=== PATIENT | female | born 1950 | race Caucasian/White ===

== ENCOUNTER 2017-06-23 12:50 | Outpatient (CLI) | payer MEDICARE, SELFPAY ==
[2017-06-23 13:50] VITALS: BP 139/80; PULSE 56; RESP 18; TEMP 36.8
[2017-06-23 14:20] VITALS: BP 140/66; PULSE 57; RESP 18
[2017-06-23 14:30] VITALS: BP 141/71; PULSE 58; RESP 18
== END 2017-06-23 14:50 | disposition home or self-care (01) ==
LOC: INF 13:06
PROVIDERS: Family Provider Internal Medicine; Visit Provider Internal Medicine Infectious Disease
DX: L03.90 Cellulitis, unspecified (principal); Z90.13 Acquired absence of bilateral breasts and nipples; C50.919 Malignant neoplasm of unspecified site of unspecified female breast
CPT/HCPCS: 96365; J0878

== ENCOUNTER 2017-06-24 10:33 | Outpatient (CLI) | payer MEDICARE, SELFPAY ==
[2017-06-24 10:46] VITALS: BP 122/65; PULSE 100; RESP 20; TEMP 37.7; O2SAT 93; BMI 29.2
[2017-06-24 12:45] VITALS: BP 122/65; PULSE 100; RESP 20; TEMP 37.7; O2SAT 93
== END 2017-06-24 13:47 | disposition home or self-care (01) ==
LOC: INF 10:34
PROVIDERS: Family Provider Internal Medicine; PCP Internal Medicine; Visit Provider Internal Medicine Infectious Disease
DX: L03.90 Cellulitis, unspecified (principal); Z90.13 Acquired absence of bilateral breasts and nipples; C50.919 Malignant neoplasm of unspecified site of unspecified female breast
CPT/HCPCS: 96360; 96365; 96367; J0878

== ENCOUNTER 2017-06-25 10:51 | Outpatient (CLI) | payer MEDICARE, SELFPAY ==
[2017-06-25 11:29] VITALS: BP 131/66; PULSE 73; RESP 18; TEMP 37.1; O2SAT 95; BMI 29.2
[2017-06-25 12:20] VITALS: BP 127/71; PULSE 75; RESP 18; TEMP 36.7; O2SAT 96
== END 2017-06-25 12:30 | disposition home or self-care (01) ==
LOC: INF 10:51
PROVIDERS: Family Provider Internal Medicine; PCP Internal Medicine; Visit Provider Internal Medicine Infectious Disease
DX: L03.90 Cellulitis, unspecified (principal); Z90.13 Acquired absence of bilateral breasts and nipples; C50.919 Malignant neoplasm of unspecified site of unspecified female breast
CPT/HCPCS: 96365; J0878

== ENCOUNTER 2017-06-26 10:40 | Outpatient (CLI) | payer MEDICARE, SELFPAY ==
[2017-06-26 10:49] VITALS: BP 114/63; PULSE 79; RESP 18; TEMP 36.6; O2SAT 99
[2017-06-26 11:04] VITALS: BP 111/61; PULSE 77; RESP 18; O2SAT 98
[2017-06-26 11:19] VITALS: BP 110/64; PULSE 74; RESP 18; O2SAT 98
[2017-06-26 11:34] VITALS: BP 115/61; PULSE 75; RESP 18; O2SAT 99
[2017-06-26 11:49] VITALS: BP 110/67; PULSE 71; RESP 18; O2SAT 98
[2017-06-26 12:05] VITALS: BP 105/67; PULSE 76; RESP 18; O2SAT 99
== END 2017-06-26 12:10 | disposition home or self-care (01) ==
LOC: INF 10:45
PROVIDERS: Family Provider Internal Medicine; PCP Internal Medicine; Visit Provider Internal Medicine Infectious Disease
DX: L03.90 Cellulitis, unspecified (principal); Z90.13 Acquired absence of bilateral breasts and nipples; C50.919 Malignant neoplasm of unspecified site of unspecified female breast
CPT/HCPCS: 96365; J0878

== ENCOUNTER 2017-06-27 12:25 | Outpatient (CLI) | payer MEDICARE, SELFPAY ==
[2017-06-27 12:37] VITALS: BP 121/72; PULSE 83; RESP 20; TEMP 36.6; O2SAT 98
[2017-06-27 12:52] VITALS: BP 124/76; PULSE 87; RESP 18; O2SAT 98
[2017-06-27 13:07] VITALS: BP 119/65; PULSE 81; RESP 18; O2SAT 97
[2017-06-27 13:25] VITALS: BP 123/79; PULSE 80; RESP 18; O2SAT 99
== END 2017-06-27 13:25 | disposition home or self-care (01) ==
LOC: INF 12:25
PROVIDERS: Family Provider Internal Medicine; PCP Internal Medicine; Visit Provider Internal Medicine Infectious Disease
DX: L03.90 Cellulitis, unspecified (principal); Z90.13 Acquired absence of bilateral breasts and nipples; C50.919 Malignant neoplasm of unspecified site of unspecified female breast
CPT/HCPCS: 96365; J0878

== ENCOUNTER 2017-06-28 12:15 | Outpatient (CLI) | payer MEDICARE, SELFPAY ==
[2017-06-28 12:25] VITALS: BMI 29.2
[2017-06-28 12:53] LABS: Basophils % 0.7 % (0.1-2.0); Eosinophils # 0.1 K/mm3 (0.0-0.4); Eosinophils % 1.3 % (0.1-12.0); Hematocrit 41.6 % (37.0-47.0); Hemoglobin 13.7 g/dL (12.2-16.2); Lymphocytes # 1.9 K/mm3 (0.7-4.5); Lymphocytes % 35.8 K/mm3 (10-50); Mean Corpuscular HGB Conc 32.9 g/dL (31.8-35.4); Mean Corpuscular Hemoglobin 28.9 pg (27.0-31.2); Mean Corpuscular Volume 87.8 fl (81-99); Monocytes # 0.4 K/mm3 (0.1-1.0); Monocytes % 7.4 % (1.7-9.3); Neutrophils # 2.9 K/mm3 (1.8-7.8); Neutrophils % 54.7 % (37.0-80.0); Platelet Count 223 K/mm3 (142-424); Red Blood Count 4.74 M/mm3 (4.20-5.40); Red Cell Distribution Width 12.8 % (11.5-17.5); White Blood Count 5.2 K/mm3 (4.8-10.8)
[2017-06-28 12:55] VITALS: BP 133/54; PULSE 64; RESP 18; O2SAT 97
[2017-06-28 13:04] LABS: Alanine Aminotransferase 40 U/L (12-78); Albumin Level 3.5 gm/dL (3.4-5.0); Alkaline Phosphatase 84 U/L (46-116); Anion Gap 10.9 mEq/L (5-15); Aspartate Amino Transferase 37 U/L (15-37); Bilirubin,Total 0.7 mg/dL (0.2-1.0); Blood Urea Nitrogen 15 mg/dL (7-18); C-Reactive Protein 1.1 mg/L (0.0-0.9); Calcium 9.3 mg/dL (8.5-10.1); Carbon Dioxide 32 mmol/L (21.0-32.0); Chloride 98 mmol/L (98-107); Creatine Kinase 75 U/L (26-192); Creatinine Clearance Estimated 58 mL/min (0-300); Creatinine,Serum 0.71 mg/dL (0.55-1.02); Estimated Glomerular Filt Rate 82 ml/min (>60); GFR (African American) 99 ML/MIN (>60); Globulin 3.6 gm/dl (1.3-3.2); Glucose 121 mg/dL (74-106); Sodium 138 mmol/L (136-145); Total Protein,Serum 7.1 gm/dL (6.4-8.2)
[2017-06-28 13:07] LABS: Potassium 2.9 mmoL/L (3.5-5.1)
[2017-06-28 13:25] VITALS: BP 126/70; PULSE 65; RESP 18
[2017-06-28 13:35] VITALS: BP 133/70; PULSE 67; RESP 18
[2017-06-28 13:38] LABS: Erythrocyte Sedimentation Rate 7 mm/hr (0-30)
== END 2017-06-28 14:05 | disposition home or self-care (01) ==
LOC: INF 12:22
PROVIDERS: Family Provider Internal Medicine; PCP Internal Medicine; Visit Provider Internal Medicine Infectious Disease
DX: L03.90 Cellulitis, unspecified (principal); Z90.13 Acquired absence of bilateral breasts and nipples; C50.919 Malignant neoplasm of unspecified site of unspecified female breast
CPT/HCPCS: 80053; 82550; 85025; 85651; 86140; 96365; J0878

== ENCOUNTER 2017-06-29 13:15 | Outpatient (CLI) | payer MEDICARE, SELFPAY ==
[2017-06-29 13:32] VITALS: BP 129/62; PULSE 78; RESP 18; TEMP 36.6; O2SAT 95; BMI 28.3
[2017-06-29 14:45] VITALS: BP 137/67; PULSE 70; RESP 18
== END 2017-06-29 15:00 | disposition home or self-care (01) ==
LOC: INF 13:29
PROVIDERS: Family Provider Internal Medicine; PCP Internal Medicine; Visit Provider Internal Medicine Infectious Disease
DX: L03.90 Cellulitis, unspecified (principal); Z90.13 Acquired absence of bilateral breasts and nipples; C50.919 Malignant neoplasm of unspecified site of unspecified female breast
CPT/HCPCS: 96365; J0878; J1642

== ENCOUNTER 2017-06-30 11:05 | Outpatient (CLI) | payer MEDICARE, SELFPAY ==
[2017-06-30 11:40] VITALS: BP 122/63; PULSE 66; RESP 18; TEMP 36.9
[2017-06-30 12:10] VITALS: BP 111/61; PULSE 73; RESP 18
[2017-06-30 12:25] VITALS: BP 110/68; PULSE 66; RESP 18
== END 2017-06-30 12:45 | disposition home or self-care (01) ==
LOC: INF 11:18
PROVIDERS: Family Provider Internal Medicine; PCP Internal Medicine; Visit Provider Internal Medicine Infectious Disease
DX: L03.90 Cellulitis, unspecified (principal); Z90.13 Acquired absence of bilateral breasts and nipples; C50.919 Malignant neoplasm of unspecified site of unspecified female breast
CPT/HCPCS: 96365; J0878; J1642

== ENCOUNTER → 2017-07-01 12:06 | Outpatient (CLI) | payer MEDICARE, SELFPAY ==
[2017-07-01 12:06] VITALS: BP 124/76; PULSE 72; RESP 18; TEMP 36.7; O2SAT 97
[2017-07-01 13:10] VITALS: BP 123/74; PULSE 71; RESP 18; TEMP 36.7; BMI 14.8
== END ==
PROVIDERS: Family Provider Internal Medicine; PCP Internal Medicine; Visit Provider Internal Medicine Infectious Disease
DX: L03.90 Cellulitis, unspecified (principal); Z90.13 Acquired absence of bilateral breasts and nipples; C50.919 Malignant neoplasm of unspecified site of unspecified female breast
CPT/HCPCS: 96365; G0463; J0878

== ENCOUNTER → 2017-07-02 09:48 | Outpatient (CLI) | payer MEDICARE, SELFPAY ==
[2017-07-02 09:48] VITALS: BP 120/68; PULSE 90; RESP 18; TEMP 36.7; O2SAT 100
[2017-07-02 10:33] VITALS: BP 119/66; PULSE 90; RESP 18; TEMP 36.7; O2SAT 100; BMI 28.5
== END ==
PROVIDERS: Family Provider Internal Medicine; PCP Internal Medicine; Visit Provider Internal Medicine Infectious Disease
DX: L03.90 Cellulitis, unspecified (principal); Z90.13 Acquired absence of bilateral breasts and nipples; C50.919 Malignant neoplasm of unspecified site of unspecified female breast
CPT/HCPCS: 96365; G0463; J0878

== ENCOUNTER 2017-07-03 11:57 | Outpatient (CLI) | payer MEDICARE, SELFPAY ==
[2017-07-03 12:20] VITALS: BP 132/68; PULSE 75; RESP 18; TEMP 36.5; O2SAT 96
[2017-07-03 12:50] VITALS: BP 121/66; PULSE 70; RESP 18
[2017-07-03 13:20] VITALS: BP 119/72; PULSE 78; RESP 18
[2017-07-03 13:30] VITALS: BP 124/64; PULSE 69; RESP 18
== END 2017-07-03 13:30 | disposition home or self-care (01) ==
LOC: INF 11:57
PROVIDERS: Family Provider Internal Medicine; PCP Internal Medicine; Visit Provider Internal Medicine Infectious Disease
DX: L03.90 Cellulitis, unspecified (principal); Z90.13 Acquired absence of bilateral breasts and nipples; C50.919 Malignant neoplasm of unspecified site of unspecified female breast
CPT/HCPCS: 96365; J0878

== ENCOUNTER 2017-07-04 11:43 | Outpatient (CLI) | payer MEDICARE, SELFPAY ==
[2017-07-04 12:15] VITALS: BP 109/65; PULSE 64; RESP 18; TEMP 36.6; O2SAT 97
[2017-07-04 13:20] VITALS: BP 112/64; PULSE 68; RESP 18; TEMP 36.6; O2SAT 96
== END 2017-07-04 13:20 | disposition home or self-care (01) ==
LOC: INF 11:43
PROVIDERS: Family Provider Internal Medicine; PCP Internal Medicine; Visit Provider Internal Medicine Infectious Disease
DX: L03.90 Cellulitis, unspecified (principal); Z90.13 Acquired absence of bilateral breasts and nipples; C50.919 Malignant neoplasm of unspecified site of unspecified female breast
CPT/HCPCS: 96365; J0878; J1642

== ENCOUNTER 2017-07-05 11:45 | Outpatient (CLI) | payer MEDICARE, SELFPAY ==
[2017-07-05 11:51] VITALS: BMI 28.5
[2017-07-05 12:20] VITALS: BP 121/77; PULSE 67; RESP 18
[2017-07-05 12:50] VITALS: BP 116/71; PULSE 60; RESP 18
[2017-07-05 12:53] LABS: Basophils % 0.5 % (0.1-2.0); Eosinophils # 0.1 K/mm3 (0.0-0.4); Eosinophils % 1.6 % (0.1-12.0); Hemoglobin 12.9 g/dL (12.2-16.2); Lymphocytes # 1.5 K/mm3 (0.7-4.5); Lymphocytes % 30.1 K/mm3 (10-50); Mean Corpuscular HGB Conc 32.2 g/dL (31.8-35.4); Mean Corpuscular Hemoglobin 28.1 pg (27.0-31.2); Mean Corpuscular Volume 87.2 fl (81-99); Mean Platelet Volume 7.2 fl (7.4-10.4); Monocytes # 0.5 K/mm3 (0.1-1.0); Monocytes % 9.4 % (1.7-9.3); Neutrophils # 2.9 K/mm3 (1.8-7.8); Neutrophils % 58.5 % (37.0-80.0); Platelet Count 370 K/mm3 (142-424); Red Blood Count 4.58 M/mm3 (4.20-5.40); Red Cell Distribution Width 12.7 % (11.5-17.5); White Blood Count 4.9 K/mm3 (4.8-10.8)
[2017-07-05 12:56] LABS: Alanine Aminotransferase 31 U/L (12-78); Albumin Level 3.5 gm/dL (3.4-5.0); Alkaline Phosphatase 92 U/L (46-116); Anion Gap 12.2 mEq/L (5-15); Aspartate Amino Transferase 24 U/L (15-37); Bilirubin,Total 0.4 mg/dL (0.2-1.0); Blood Urea Nitrogen 15 mg/dL (7-18); C-Reactive Protein 0.2 mg/L (0.0-0.9); Calcium 8.7 mg/dL (8.5-10.1); Carbon Dioxide 31 mmol/L (21.0-32.0); Chloride 102 mmol/L (98-107); Creatinine Clearance Estimated 56 mL/min (0-300); Creatinine,Serum 0.69 mg/dL (0.55-1.02); Estimated Glomerular Filt Rate 85 ml/min (>60); GFR (African American) 102 ML/MIN (>60); Globulin 3.5 gm/dl (1.3-3.2); Glucose 118 mg/dL (74-106); Potassium 4.2 mmoL/L (3.5-5.1); Sodium 141 mmol/L (136-145)
[2017-07-05 13:05] LABS: Creatine Kinase 166 U/L (26-192)
[2017-07-05 14:35] LABS: Erythrocyte Sedimentation Rate 20 mm/hr (0-30)
== END 2017-07-05 13:30 | disposition home or self-care (01) ==
LOC: INF 11:46
PROVIDERS: Family Provider Internal Medicine; PCP Internal Medicine; Visit Provider Internal Medicine Infectious Disease
DX: L03.90 Cellulitis, unspecified (principal); Z90.13 Acquired absence of bilateral breasts and nipples; C50.919 Malignant neoplasm of unspecified site of unspecified female breast
CPT/HCPCS: 80053; 82550; 85025; 85651; 86140; 96365; J0878; J1642

== ENCOUNTER 2017-07-06 09:30 | Outpatient (CLI) | payer MEDICARE, SELFPAY ==
[2017-07-06 10:23] VITALS: BP 92/52; PULSE 66; RESP 18; TEMP 36.8; O2SAT 96
[2017-07-06 10:45] VITALS: BP 102/56; PULSE 69; RESP 18
[2017-07-06 11:10] VITALS: BP 103/64; PULSE 68; RESP 18; TEMP 36.6; O2SAT 95
== END 2017-07-06 11:20 | disposition home or self-care (01) ==
LOC: INF 09:35
PROVIDERS: Family Provider Internal Medicine; PCP Internal Medicine; Visit Provider Internal Medicine Infectious Disease
DX: L03.90 Cellulitis, unspecified (principal); Z90.13 Acquired absence of bilateral breasts and nipples; C50.919 Malignant neoplasm of unspecified site of unspecified female breast
CPT/HCPCS: 96365; J0878; J1642

== ENCOUNTER 2017-07-07 11:09 | Outpatient (CLI) | payer MEDICARE, SELFPAY ==
[2017-07-07 11:30] VITALS: BP 119/67; PULSE 69; TEMP 36.4
[2017-07-07 12:05] VITALS: BP 106/56; PULSE 70; RESP 18
== END 2017-07-07 12:30 | disposition home or self-care (01) ==
LOC: INF 11:09
PROVIDERS: Family Provider Internal Medicine; PCP Internal Medicine; Visit Provider Internal Medicine Infectious Disease
DX: L03.90 Cellulitis, unspecified (principal); Z90.13 Acquired absence of bilateral breasts and nipples; C50.919 Malignant neoplasm of unspecified site of unspecified female breast
CPT/HCPCS: 96365; 96367; J0878; J1642

== ENCOUNTER → 2017-07-08 10:07 | Outpatient (CLI) | payer MEDICARE, SELFPAY ==
[2017-07-08 10:42] VITALS: BMI 28.5
[2017-07-08 10:43] VITALS: BP 144/76; PULSE 64; RESP 18; TEMP 36.3; O2SAT 98
[2017-07-08 12:04] VITALS: BP 144/79; PULSE 52; RESP 18; TEMP 36.6; O2SAT 98
== END ==
PROVIDERS: Family Provider Internal Medicine; PCP Internal Medicine; Visit Provider Internal Medicine Infectious Disease
DX: L03.90 Cellulitis, unspecified (principal); Z90.13 Acquired absence of bilateral breasts and nipples; C50.919 Malignant neoplasm of unspecified site of unspecified female breast
CPT/HCPCS: 96365; 96367; J0878

== ENCOUNTER 2017-07-09 10:19 | Outpatient (CLI) | payer MEDICARE, SELFPAY ==
[2017-07-09 10:28] VITALS: BP 115/73; PULSE 67; RESP 18; TEMP 36.7; O2SAT 94
[2017-07-09 11:46] VITALS: BMI 28.6
[2017-07-09 12:54] VITALS: BP 131/68; PULSE 73; RESP 18; TEMP 36.6; O2SAT 97
== END 2017-07-09 12:56 | disposition home or self-care (01) ==
LOC: INF 10:20
PROVIDERS: Family Provider Internal Medicine; PCP Internal Medicine; Visit Provider Internal Medicine Infectious Disease
DX: L03.90 Cellulitis, unspecified (principal); Z90.13 Acquired absence of bilateral breasts and nipples; C50.919 Malignant neoplasm of unspecified site of unspecified female breast
CPT/HCPCS: 96365; 96367; J0878

== ENCOUNTER 2017-07-10 11:43 | Outpatient (CLI) | payer MEDICARE, SELFPAY ==
[2017-07-10 12:15] VITALS: BP 112/68; PULSE 68; RESP 18; TEMP 36.7; O2SAT 97
[2017-07-10 12:45] VITALS: BP 113/68; PULSE 75; RESP 18
[2017-07-10 13:00] VITALS: BP 112/68; PULSE 72; RESP 18
[2017-07-10 13:15] VITALS: BP 112/68; PULSE 72; RESP 18
== END 2017-07-10 13:15 | disposition home or self-care (01) ==
LOC: INF 11:43
PROVIDERS: Family Provider Internal Medicine; PCP Internal Medicine; Visit Provider Internal Medicine Infectious Disease
DX: L03.90 Cellulitis, unspecified (principal); Z90.13 Acquired absence of bilateral breasts and nipples; C50.919 Malignant neoplasm of unspecified site of unspecified female breast
CPT/HCPCS: 96365; 96367; J0878

== ENCOUNTER 2017-07-11 12:01 | Outpatient (CLI) | payer MEDICARE, SELFPAY ==
[2017-07-11 13:00] VITALS: BP 145/82; PULSE 83; RESP 20; TEMP 36.5; O2SAT 96
[2017-07-11 15:20] VITALS: BP 152/87; PULSE 83; RESP 20; TEMP 36.9; O2SAT 96
== END 2017-07-11 13:10 | disposition home or self-care (01) ==
LOC: INF 12:01
PROVIDERS: Family Provider Internal Medicine; PCP Internal Medicine; Visit Provider Internal Medicine Infectious Disease
DX: L03.90 Cellulitis, unspecified (principal); Z90.13 Acquired absence of bilateral breasts and nipples; C50.919 Malignant neoplasm of unspecified site of unspecified female breast
CPT/HCPCS: 96365; 96367; J0878; J1642

== ENCOUNTER 2017-07-12 11:38 | Outpatient (CLI) | payer MEDICARE, SELFPAY ==
[2017-07-12 11:40] VITALS: BP 119/71; PULSE 72; RESP 18; TEMP 36.6; O2SAT 95; O2SAT 97
[2017-07-12 11:57] VITALS: BMI 28.5
[2017-07-12 12:19] VITALS: BP 142/63; PULSE 75; RESP 18; TEMP 36.6; O2SAT 97
[2017-07-12 12:21] LABS: Basophils % 0.7 % (0.1-2.0); Eosinophils # 0.1 K/mm3 (0.0-0.4); Eosinophils % 2.1 % (0.1-12.0); Hematocrit 38.2 % (37.0-47.0); Hemoglobin 12.5 g/dL (12.2-16.2); Lymphocytes # 1.6 K/mm3 (0.7-4.5); Mean Corpuscular HGB Conc 32.7 g/dL (31.8-35.4); Mean Corpuscular Hemoglobin 28.1 pg (27.0-31.2); Mean Platelet Volume 6.9 fl (7.4-10.4); Monocytes # 0.4 K/mm3 (0.1-1.0); Monocytes % 7.1 % (1.7-9.3); Neutrophils # 3.6 K/mm3 (1.8-7.8); Neutrophils % 62.1 % (37.0-80.0); Platelet Count 316 K/mm3 (142-424); Red Blood Count 4.44 M/mm3 (4.20-5.40); Red Cell Distribution Width 12.8 % (11.5-17.5); White Blood Count 5.7 K/mm3 (4.8-10.8)
[2017-07-12 12:33] LABS: Alanine Aminotransferase 24 U/L (12-78); Albumin Level 3.6 gm/dL (3.4-5.0); Albumin/Globulin Ratio 1.1 (1.1-1.8); Alkaline Phosphatase 86 U/L (46-116); Aspartate Amino Transferase 21 U/L (15-37); Bilirubin,Total 0.6 mg/dL (0.2-1.0); Blood Urea Nitrogen 22 mg/dL (7-18); Carbon Dioxide 30 mmol/L (21.0-32.0); Chloride 103 mmol/L (98-107); Creatine Kinase 113 U/L (26-192); Creatinine Clearance Estimated 56 mL/min (0-300); Creatinine,Serum 0.66 mg/dL (0.55-1.02); Estimated Glomerular Filt Rate 89 ml/min (>60); GFR (African American) 108 ML/MIN (>60); Globulin 3.2 gm/dl (1.3-3.2); Glucose 96 mg/dL (74-106); Sodium 139 mmol/L (136-145); Total Protein,Serum 6.8 gm/dL (6.4-8.2)
[2017-07-12 12:35] VITALS: BP 152/87; PULSE 83; RESP 18; TEMP 36.6; O2SAT 98
[2017-07-12 12:39] LABS: C-Reactive Protein < 0.2 mg/L (0.0-0.9)
[2017-07-12 12:50] VITALS: BP 109/56; PULSE 75; RESP 18; TEMP 36.6; O2SAT 96
[2017-07-12 13:11] LABS: Erythrocyte Sedimentation Rate 16 mm/hr (0-30)
[2017-07-12 13:20] VITALS: BP 109/56; PULSE 75; RESP 18; TEMP 36.6; O2SAT 97
--- NOTE | 2017-07-12 14:38 | PC.NURSE ---
dressing change on left side chest groshong. used sterile technique . skin intact, pink, warm. cleaned with chlorahexadin and applied new algadex, replaced blue caps and flushed with saline and heparin on both red and purple. applied window dressing and name and date/time strip. pt tolerated procedure well
== END 2017-07-12 13:20 | disposition home or self-care (01) ==
LOC: INF 11:39
PROVIDERS: Family Provider Internal Medicine; PCP Internal Medicine; Visit Provider Internal Medicine Infectious Disease
DX: L03.90 Cellulitis, unspecified (principal); Z90.13 Acquired absence of bilateral breasts and nipples; C50.919 Malignant neoplasm of unspecified site of unspecified female breast
CPT/HCPCS: 80053; 82550; 85025; 85651; 86140; 96365; 96367; J0878; J1642

== ENCOUNTER 2017-07-13 11:50 | Outpatient (CLI) | payer MEDICARE, SELFPAY ==
[2017-07-13 12:25] VITALS: BP 117/80; PULSE 64; RESP 18
[2017-07-13 12:55] VITALS: BP 88/47; PULSE 67; RESP 18
[2017-07-13 13:05] VITALS: BP 122/50; PULSE 67; RESP 18
== END 2017-07-13 13:25 | disposition home or self-care (01) ==
LOC: INF 12:29
PROVIDERS: Family Provider Internal Medicine; PCP Internal Medicine; Visit Provider Internal Medicine Infectious Disease
DX: L03.90 Cellulitis, unspecified (principal); Z90.13 Acquired absence of bilateral breasts and nipples; C50.919 Malignant neoplasm of unspecified site of unspecified female breast
CPT/HCPCS: 96365; 96367; J0878; J1642

== ENCOUNTER → 2017-07-14 11:55 | Outpatient (CLI) | payer MEDICARE, SELFPAY ==
[2017-07-14 12:00] VITALS: BP 130/79; PULSE 74; RESP 18; TEMP 36.6; O2SAT 97
[2017-07-14 12:30] VITALS: BP 131/79; PULSE 61; RESP 18
[2017-07-14 13:00] VITALS: BP 133/72; PULSE 64; RESP 18
[2017-07-14 13:15] VITALS: BP 133/72; PULSE 64; RESP 18
== END ==
PROVIDERS: Family Provider Internal Medicine; PCP Internal Medicine; Visit Provider Internal Medicine Infectious Disease
DX: L03.90 Cellulitis, unspecified (principal); Z90.13 Acquired absence of bilateral breasts and nipples; C50.919 Malignant neoplasm of unspecified site of unspecified female breast
CPT/HCPCS: 96365; 96367; J0878

== ENCOUNTER → 2017-07-15 10:15 | Outpatient (CLI) | payer MEDICARE, SELFPAY ==
[2017-07-15 10:40] VITALS: BP 132/55; PULSE 67; RESP 24; TEMP 37; O2SAT 96
[2017-07-15 10:41] VITALS: BP 132/55; PULSE 67; RESP 24; TEMP 37; O2SAT 96
[2017-07-15 11:25] VITALS: BP 118/72; PULSE 65; RESP 20; TEMP 36.9; O2SAT 96
== END ==
PROVIDERS: Family Provider Internal Medicine; PCP Internal Medicine; Visit Provider Internal Medicine Infectious Disease
DX: L03.90 Cellulitis, unspecified (principal); Z90.13 Acquired absence of bilateral breasts and nipples; C50.919 Malignant neoplasm of unspecified site of unspecified female breast
CPT/HCPCS: 96365; 96367; J0878

== ENCOUNTER → 2017-07-16 10:11 | Outpatient (CLI) | payer MEDICARE, SELFPAY ==
[2017-07-16 10:11] VITALS: BP 124/56; PULSE 80; RESP 18; TEMP 36.7; O2SAT 94
[2017-07-16 10:34] VITALS: BP 125/55; PULSE 80; RESP 18; TEMP 36.7; O2SAT 94; BMI 28.5
== END ==
PROVIDERS: Family Provider Internal Medicine; PCP Internal Medicine; Visit Provider Internal Medicine Infectious Disease
DX: L03.90 Cellulitis, unspecified (principal); Z90.13 Acquired absence of bilateral breasts and nipples; C50.919 Malignant neoplasm of unspecified site of unspecified female breast
CPT/HCPCS: 96365; 96367; G0463; J0878

== ENCOUNTER 2017-07-17 11:52 | Outpatient (CLI) | payer MEDICARE, SELFPAY ==
[2017-07-17 12:27] VITALS: BP 128/65; PULSE 66; RESP 18; TEMP 36.6; O2SAT 96
[2017-07-17 12:45] VITALS: BP 122/66; PULSE 65; RESP 18; TEMP 36.4; O2SAT 97
[2017-07-17 13:15] VITALS: BP 123/78; PULSE 72; RESP 18; TEMP 36.6; O2SAT 97
== END 2017-07-17 13:25 | disposition home or self-care (01) ==
LOC: INF 11:52
PROVIDERS: Family Provider Internal Medicine; PCP Internal Medicine; Visit Provider Internal Medicine Infectious Disease
DX: L03.90 Cellulitis, unspecified (principal); Z90.13 Acquired absence of bilateral breasts and nipples; C50.919 Malignant neoplasm of unspecified site of unspecified female breast
CPT/HCPCS: 96365; 96367; J0878; J1642

== ENCOUNTER → 2018-01-02 07:55 | Outpatient (CLI) | payer MEDICARE, SELFPAY ==
[2018-01-02 09:11] LABS: Anion Gap 12.1 mEq/L (5-15); Blood Urea Nitrogen 15 mg/dL (7-18); Calcium 9.5 mg/dL (8.5-10.1); Carbon Dioxide 31 mmol/L (21.0-32.0); Chloride 103 mmol/L (98-107); Creatinine,Serum 0.66 mg/dL (0.55-1.02); Estimated Glomerular Filt Rate 89 ml/min (>60); GFR (African American) 108 ML/MIN (>60); Glucose 82 mg/dL (74-106); Potassium 4.1 mmoL/L (3.5-5.1); Sodium 142 mmol/L (136-145)
[2018-01-02 09:55] LABS: Hemoglobin A1C 6.7 % (0.0-7.0)
[2018-01-02 10:39] LABS: Basophils % 0.3 % (0.1-2.0); Eosinophils # 0.1 K/mm3 (0.0-0.4); Eosinophils % 1.7 % (0.1-12.0); Hematocrit 39.6 % (37.0-47.0); Hemoglobin 12.8 g/dL (12.2-16.2); Lymphocytes # 1.8 K/mm3 (0.7-4.5); Lymphocytes % 29.9 K/mm3 (10-50); Mean Corpuscular HGB Conc 32.3 g/dL (31.8-35.4); Mean Corpuscular Hemoglobin 28.7 pg (27.0-31.2); Mean Corpuscular Volume 88.7 fl (81-99); Mean Platelet Volume 7.3 fl (7.4-10.4); Monocytes # 0.5 K/mm3 (0.1-1.0); Monocytes % 7.7 % (1.7-9.3); Neutrophils # 3.7 K/mm3 (1.8-7.8); Neutrophils % 60.5 % (37.0-80.0); Platelet Count 331 K/mm3 (142-424); Red Blood Count 4.46 M/mm3 (4.20-5.40); Red Cell Distribution Width 13.2 % (11.5-17.5); White Blood Count 6.1 K/mm3 (4.8-10.8)
== END ==
PROVIDERS: PCP Internal Medicine; Visit Provider Plastic Surgery
DX: Z01.812 Encounter for preprocedural laboratory examination (principal); Z90.13 Acquired absence of bilateral breasts and nipples; C50.919 Malignant neoplasm of unspecified site of unspecified female breast; Z79.899 Other long term (current) drug therapy
CPT/HCPCS: 36415; 80048; 83036; 85025

== ENCOUNTER → 2018-03-09 11:42 | Outpatient (CLI) | payer MEDICARE, SELFPAY ==
--- NOTE | 2018-03-09 11:46 | XR_ITS ---
XR chest 2V HISTORY: ITS.REASON: SHORTNESS OF AIR,COUGH ORDERING PHYSICIAN: Markel Diaz PATIENT AGE: 67 years Technique: PA and lateral chest COMPARISON: No previous chest film. There is a CT abdomen from November 2016 which includes lung bases and & CT die maker electronic view of lower chest. FINDINGS:. There is scattered subtle small indeterminate nodular densities scattered throughout lungs... None Measuring over 1 cm in size.No previous chest film for comparison. Some of these I believe may be related to clothing for example I see a collar button projected superior to the left clavicle... And question possible button projected over the left fourth rib, and another projected in the soft tissues overlying the lower right ribs right ribs However there are numerous other subtle small nodules bilaterally which are indeterminate and with given history of breast cancer would suggest CT of chest with contrast to further evaluate.. . note:... I have have been able to find a 2012 chest film in PACS and this appearance is certainly change since that time. Today's Appearance raising concern regarding early metastatic disease . The heart is normal in size. The shirley and mediastinal structures satisfactory. Ribs, unremarkable. T-spine appears intact. Mild demineralization. Postsurgical changes overlying the left chest likely from previous breast surgery. -------IMPRESSION. 1. Numerous small faint nodular densities projected over the lung ruby bilaterally. New since [address] chest preferably with contrast, to further evaluate,particularly in view breast cancer history 2. Mild bibasilar atelectasis noted along with mild chronic change Less likely subtle bibasilar infiltrate .
[2018-03-09 12:45] LABS: Basophils % 0.4 % (0.1-2.0); Eosinophils # 0.1 K/mm3 (0.0-0.4); Eosinophils % 1.7 % (0.1-12.0); Hematocrit 40.7 % (37.0-47.0); Hemoglobin 13.5 g/dL (12.2-16.2); Lymphocytes # 2.1 K/mm3 (0.7-4.5); Lymphocytes % 25.2 % (10-50); Mean Corpuscular HGB Conc 33.2 g/dL (31.8-35.4); Mean Corpuscular Hemoglobin 28.6 pg (27.0-31.2); Mean Corpuscular Volume 86.1 fl (81-99); Mean Platelet Volume 6.2 fl (7.4-10.4); Monocytes # 0.5 K/mm3 (0.1-1.0); Monocytes % 6.4 % (1.7-9.3); Neutrophils # 5.6 K/mm3 (1.8-7.8); Neutrophils % 66.4 % (37.0-80.0); Platelet Count 380 K/mm3 (142-424); Red Blood Count 4.72 M/mm3 (4.20-5.40); Red Cell Distribution Width 13.2 % (11.5-17.5); White Blood Count 8.4 K/mm3 (4.8-10.8)
[2018-03-09 13:08] LABS: D-Dimer 319 ng/mL (0-400)
[2018-03-09 13:11] LABS: Alanine Aminotransferase 27 U/L (12-78); Albumin Level 3.7 gm/dL (3.4-5.0); Albumin/Globulin Ratio 0.9 (1.1-1.8); Alkaline Phosphatase 113 U/L (46-116); Anion Gap 12.8 mEq/L (5-15); Aspartate Amino Transferase 21 U/L (15-37); Bilirubin,Total 0.7 mg/dL (0.2-1.0); Blood Urea Nitrogen 15 mg/dL (7-18); Calcium 9.6 mg/dL (8.5-10.1); Carbon Dioxide 30 mmol/L (21.0-32.0); Chloride 100 mmol/L (98-107); Creatine Kinase 92 U/L (26-192); Creatinine,Serum 0.73 mg/dL (0.55-1.02); Estimated Glomerular Filt Rate 79 ml/min (>60); GFR (African American) 96 ML/MIN (>60); Globulin 3.9 gm/dl (1.3-3.2); Glucose 97 mg/dL (74-106); Potassium 3.8 mmoL/L (3.5-5.1); Sodium 139 mmol/L (136-145); Total Protein,Serum 7.6 gm/dL (6.4-8.2); Troponin I < 0.02 ng/ml (0.00-0.06)
[2018-03-09 13:12] LABS: CKMB Relative Index 0.5 U/L (0-4.0); Creatine Kinase MB < 0.5 ng/ml (0.0-3.6)
--- NOTE | 2018-03-09 14:13 | CT_ITS ---
CT chest w con HISTORY: ITS.REASON: R/O METS, COUGH NODULES SEEN ON CXR ORDERING PHYSICIAN: Markel Diaz PATIENT AGE: 67 years COMPARISON: Chest film from & 2012. Also CT abdomen from November 2016 Technique: Helical axial images obtained following 75 cc Isovue-[id number] IV.. Axial Sagittal and coronal reformatted images are also generated and reviewed. All CT scans at the facility use one or more dose reduction, viz: automated exposure control, ma/kV adjustment per patient size (including targeted exams where dose is matched to indication, i.e. head), or iterative reconstruction technique. FINDINGS: . . innumerable round soft tissue nodular densities scattered diffusely throughout the lung ruby bilaterally..No calcification.. These are too numerous to count These include new nodules seen at the lung bases which have developed since November 2016 CT abdomen. Nearly all the nodules are nodules are 1 cm or less. The largest nodules measure just over 12 mm the superior segment of the left lower lobe Findings are compatible with pulmonary metastatic disease, particularly with noting history of breast cancer. . . There is some additional linear scarring & atelectasis just above the right hemidiaphragm. .There is a small right pleural effusion at the right posterior sulcus with atelectasis just at the inferior tip of the right lower lobe. Mild chronic interstitial changes throughout. The patient has had a bilateral mastectomy with breast augmentation implants bilaterally. No recurrent lesions are seen at the chest wall or residual breast Mediastinum. No mediastinal mass nor adenopathy.. Left shirley appears satisfactory. There is a a few small 7 mm parenchymal nodule just lateral to the left shirley is seen on axial image 32. Right shirley:, small round nodule along lateral aspect inferior right shirley axial image 39.-Just lateral to a calcified granuloma hilar node. Heart. Minimal coronary calcification. Heart normal size. No pericardial effusion. Aorta appears normal caliber. No aneurysm or dissection. Pulmonary arteries. This is a routine chest films but we actually see the pulmonary arteries to fairly good advantage. Central pulmonary arteries appears satisfactory to the hilar regions and are well visualized. No PE evident.. The primary, secondary tertiary and fourth order pulmonary arteries are nicely seen with no evidence of pulmonary embolism. Fifth order vessels are less well visualized but grossly unremarkable. Thus no pulmonary embolism identified. Bones. No prominent or definitive osseous metastatic disease evident. *Only note small subtle focus lucency at the lateral left eighth rib on sagittal image 73.-Equivocal feature. This is not seen on the other views and this could merely volume averaging feature. However. Consider bone scan follow-up to exclude any osseous involvement particularly if pain here Uppermost abdomen: Suggestion small layering calcified stones in dependent gallbladder. adrenals unremarkable. IMPRESSION Innumerable pulmonary nodules throughout the lung ruby bilaterally Compatible with Metastatic Disease. Small right pleural effusion. Dense area of Linear scarring & atelectasis RLL. Scant airspace disease inferior most RLL, most likely reflecting atelectasis adjacent to the small right pleural effusion... There was Fairly good visualization of pulmonary arteries on this routine CT chest with contrast with no pulmonary embolism. The central pulmonary arteries best visualized. Bilateral mastectomy with bilateral breast augmentation implants Cholelithiasis. Tiny lucent area at the lateral eighth rib.Question significance (Sagittal image 73) . Consider bone scan.
== END ==
PROVIDERS: PCP Internal Medicine; Visit Provider Internal Medicine
DX: R06.02 Shortness of breath (principal); R05 Cough
CPT/HCPCS: 36415; 71046; 71260; 80053; 82550; 82553; 84484; 85025; 85378; 93005; Q9967

== ENCOUNTER 2018-07-03 14:15 | Outpatient (CLI) | payer MEDICARE, SELFPAY ==
[2018-07-03 14:30] VITALS: BP 104/66; PULSE 68; RESP 20; TEMP 36.9; O2SAT 95
[2018-07-03 16:00] VITALS: BP 118/64; PULSE 68; RESP 20; TEMP 36.9; O2SAT 95
== END 2018-07-03 16:00 | disposition home or self-care (01) ==
LOC: INF 14:15
PROVIDERS: Visit Provider Nurse Practitioner
DX: E86.0 Dehydration (principal); C50.919 Malignant neoplasm of unspecified site of unspecified female breast
CPT/HCPCS: 96360; 96375; J1642; J2405